=== PATIENT | male | born 1980 | race Caucasian/White ===

== ENCOUNTER 2022-06-25 19:03 | Emergency (ER) | payer SELFPAY ==
[2022-06-25 19:40] VITALS: BP 201/115; PULSE 83; RESP 18; TEMP 36.6; O2SAT 98; BMI 33.3
--- NOTE | 2022-06-25 20:10 | ECG_ITS ---
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 Measurements Intervals [place] Rate: 64 P: 24 [place]: 140 QRS: 2 QRSD: 95 T: 44 QT: 381 QTc: 393 Interpretive Statements SINUS RHYTHM WITH SINUS ARRHYTHMIA No previous ECG available for comparison Electronically Signed On 06-25-2022 22:00:17 CDT by Gorge Avila M.D. [email or web address]
--- NOTE | 2022-06-25 20:10 | XRR_ITS ---
PROCEDURE INFORMATION: Exam: XR Chest Exam date and time: 06/25/2022 8:25 PM Age: 41 years old Clinical indication: Chest wall pain; Additional info: Cp TECHNIQUE: Imaging protocol: Radiologic exam of the chest. Views: 1 view. COMPARISON: No relevant prior studies available. FINDINGS: Lungs: Unremarkable. No consolidation. Pleural spaces: Unremarkable. No pleural effusion. No pneumothorax. Heart/Mediastinum: Cardiomegaly. Bones/joints: Unremarkable. XR/XR chest 1V portable [id number] IMPRESSION: Cardiomegaly, lungs are clear.
--- NOTE | 2022-06-25 20:18 | ED_ITS ---
HPI - General Adult General: Chief complaint: General Medical Stated complaint: high bp Time Seen by Provider: 06/25/22 20:04 Source: patient Mode of arrival: ambulatory Limitations: no limitations History of Present Illness: 41-year-old male states he was recently diagnosed with hypertension he states he started Norvasc last week. He states he been taking it been causing a lot of GI distress he states he has been burping having a burning sensation in his chest. He states it stopped yesterday and today has been hypertensive his blood pressure is 201/115 he states he still has some of that burning in his chest he denies any shortness of breath or diaphoresis denies any worsening proved factors. Associated symptoms: Reports chest pain; Deny dyspnea, headache(s), nausea, rash or vomiting Review of Systems Const: Denies: fever(s), chills, body aches or change in appetite Eyes: Denies: blurry vision or eye discomfort ENMT: Denies: throat pain or dental pain Card: Reports: chest pain Resp: Denies: dyspnea GI: Denies: abdominal pain, nausea, vomiting or diarrhea : Denies: dysuria Musc: Denies: neck pain or back pain Skin/Breast: Denies: rash Neuro: Denies: headache(s) Psych: Denies: depression Mason/Lymph: Denies: easy bruising All/Imm: Denies: urticaria PFSH ED PFSH: Medical History (Updated 06/25/22 @ 21:04 by Jovi Arriaga MD) Hypertension Social History Substance/Drug Use: never Physical Exam Const: COMMON NORMALS: no acute distress, patient oriented x3 and healthy appearing HENMT: COMMON NORMALS: normocephalic and atraumatic HEAD & SCALP: normocephalic and atraumatic Eye: COMMON NORMALS: Equal, round and reactive pupils present and EOMs intact bilaterally PUPIL: Yes Equal, round and reactive pupils present Neck/C-Spine: COMMON NORMALS: full ROM and supple Chest: COMMONS NORMALS: normal inspection of the chest and normal palpation of entire chest wall Resp: COMMON NORMALS: normal respiratory effort, No retractions, No use of accessory muscles and clear to auscultation bilaterally AUSCULTATION: clear to auscultation bilaterally Cardio: COMMON NORMALS: regular rate, regular rhythm and No murmurs present (Cardio) RATE: regular rate RHYTHM: regular rhythm GI: COMMON NORMALS: Normal to inspection, nondistended, normoactive bowel sounds present, Soft to palpation, non-tender and no masses PALPATION: Yes Soft to palpation Extremity: COMMON NORMALS: normal to inspection and full ROM Neuro: COMMON NORMALS: patient oriented x3, moves all extremities and no focal motor deficits Psych: COMMON NORMALS: mental status grossly normal, Normal thought process present and cooperative THOUGHT PROCESS: Normal thought process present Skin: COMMON NORMALS: no rashes or lesions noted and no wounds GENERAL SKIN EXAM: no rashes or lesions noted Course Vital Signs: Vital signs: Vital Signs Temperature 97.8 F 06/25/22 19:40 Pulse Rate 74 06/25/22 20:44 Respiratory Rate 14 06/25/22 20:44 Blood Pressure 170/101 06/25/22 20:44 Pulse Oximetry 97 06/25/22 20:44 Oxygen Delivery Me thod 06/25/22 19:40 [facility] - General Adult Medical Decision Making Patient presents here with hypertension his blood pressure here is improved he does have some chest pains atypical in nature some likely gastritis he stopped his Norvasc will start him on metoprolol he is to follow with PCP and return if worsening Lab Data : 06/25/22 20:18 06/25/22 20:18 Radiology Impressions Chest X-Ray 06/25/22 20:10 IMPRESSION: Cardiomegaly, lungs are clear. Laboratory Results WBC 12.1 10^3/uL (4.0-10.0) H 06/25/22 20:18 RBC 5.22 10^6/uL (4.1-5.3) 06/25/22 20:18 Hgb 16.0 g/dL (11.7-16.6) 06/25/22 20:18 Hct 45.4 % (42.0-52.0) 06/25/22 20:18 MCV 87.0 fl (80-94) 06/25/22 20:18 MCH 30.7 pg (28.0-34.0) 06/25/22 20:18 MCHC 35.2 g/dL (30.0-36.0) 06/25/22 20:18 RDW 12.1 % (12.1-15.1) 06/25/22 20:18 Plt Count 289 10^3/cmm (130-400) 06/25/22 20:18 MPV 10.6 fL (7.4-10.4) H 06/25/22 20:18 Neut % (Auto) 79.3 % 06/25/22 20:18 Lymph % (Auto) 14.0 % 06/25/22 20:18 [place] % (Auto) 5.5 % 06/25/22 20:18 Eos % (Auto) 0.7 % 06/25/22 20:18 Baso % (Auto) 0.3 % 06/25/22 20:18 Neut # (Auto) 9.60 10^3/uL (1.8-7.7) H 06/25/22 20:18 Lymph # (Auto) 1.7 10^3/uL (0.8-4.8) 06/25/22 20:18 [place] # (Auto) 0.7 10^3/uL (0.2-0.9) 06/25/22 20:18 Eos # (Auto) 0.1 10^3/uL (0.0-0.8) 06/25/22 20:18 Baso # (Auto) 0.0 10^3/uL (0.0-0.1) 06/25/22 20:18 Nucleated RBC % (auto) 0 % 06/25/22 20:18 Nucleated RBCs # 0.0 /100WBC 06/25/22 20:18 Sodium 137 mmol/L (136-145) 06/25/22 20:18 Potassium 3.7 mmol/L (3.5-5.1) 06/25/22 20:18 Chloride 100 mmol/L (98-107) 06/25/22 20:18 Carbon Dioxide 26 mmol/L (22-29) 06/25/22 20:18 Anion Gap 14.7 (5-19) 06/25/22 20:18 BUN 9 mg/dL (6-20) 06/25/22 20:18 Creatinine 1.0 mg/dL (0.7-1.2) 06/25/22 20:18 GFR Calculation 82.8 mL/min (90-130) L 06/25/22 20:18 Glucose 99 mg/dL (65-115) 06/25/22 20:18 Calculated Osmolality 283 mOsm/kg (285-295) L 06/25/22 20:18 Calcium 9.4 mg/dL (8.5-10.5) 06/25/22 20:18 Total Bilirubin 0.6 mg/dL (0.15-1.2) 06/25/22 20:18 AST 17 U/L (0-40) 06/25/22 20:18 ALT 37 U/L (0-41) 06/25/22 20:18 Alkaline Phosphatase 59 U/L (40-130) 06/25/22 20:18 Troponin T Baseline 8 ng/L (0-15) 06/25/22 20:18 Total Protein 7.9 g/dL (6.6-8.7) 06/25/22 20:18 Albumin 4.7 g/dL (3.5-5.2) 06/25/22 20:18 Globulin 3.2 g/dL (1.3-4.6) 06/25/22 20:18 EKG Data EKG 1: I personally reviewed and interpreted this EKG as follows: EKG interpretation date: 06/25/22 EKG interpretation time: 19:47 Interpretation: nsr hr [address] or t wave abnormalities qrs 95 qtc 390 Computer generated interpretation: Chest X-Ray 06/25/22 20:10 IMPRESSION: Cardiomegaly, lungs are clear. 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
[2022-06-25] MEDS: hyDRALAzine 20 mg/mL INJ 1 mL 10 MG IVP (20:21)
[2022-06-25 20:23] LABS: Basophils % 0.3 %; Eosinophils # 0.1 10^3/uL (0.0-0.8); Eosinophils % 0.7 %; Hematocrit 45.4 % (42.0-52.0); Lymphocytes # 1.7 10^3/uL (0.8-4.8); Mean Corpuscular HGB Conc 35.2 g/dL (30.0-36.0); Mean Corpuscular Hemoglobin 30.7 pg (28.0-34.0); Mean Platelet Volume 10.6 fL (7.4-10.4); Monocytes # 0.7 10^3/uL (0.2-0.9); Monocytes % 5.5 %; Neutrophils % 79.3 %; Nucleated Red Blood Cells % 0 %; Platelet Count 289 10^3/cmm (130-400); Red Blood Count 5.22 10^6/uL (4.1-5.3); Red Cell Distribution Width 12.1 % (12.1-15.1); White Blood Count 12.1 10^3/uL (4.0-10.0)
[2022-06-25 20:44] VITALS: BP 170/101; PULSE 74; RESP 14; O2SAT 97
[2022-06-25 20:45] LABS: Troponin(5th) Baseline 8 ng/L (0-15)
[2022-06-25 20:46] LABS: Alanine Aminotransferase 37 U/L (0-41); Albumin Level 4.7 g/dL (3.5-5.2); Alkaline Phosphatase 59 U/L (40-130); Anion Gap 14.7 (5-19); Aspartate Amino Transferase 17 U/L (0-40); Blood Urea Nitrogen 9 mg/dL (6-20); Calcium 9.4 mg/dL (8.5-10.5); Carbon Dioxide 26 mmol/L (22-29); Chloride 100 mmol/L (98-107); Globulin 3.2 g/dL (1.3-4.6); Glomerular Filtration Rate 82.8 mL/min (90-130); Glucose 99 mg/dL (65-115); Osmolality Calculated 283 mOsm/kg (285-295); Potassium 3.7 mmol/L (3.5-5.1); Sodium 137 mmol/L (136-145); Total Bilirubin 0.6 mg/dL (0.15-1.2); Total Protein 7.9 g/dL (6.6-8.7)
[2022-06-25 21:00] VITALS: BP 157/107; PULSE 69; RESP 15; O2SAT 98
[2022-06-25] MEDS: metoprolol tartrate 25 mg Tablet PO (21:10)
[2022-06-25 21:30] VITALS: BP 166/106; PULSE 66; RESP 13; O2SAT 96
[2022-06-25 21:49] VITALS: BP 166/106; PULSE 60
== END 2022-06-25 21:45 | disposition home or self-care (01) ==
PROVIDERS: Emergency Provider Emergency Medicine; PCP Family Medicine
DX: I10 Essential (primary) hypertension (principal); R07.9 Chest pain, unspecified
CPT/HCPCS: 71045; 80053; 84484; 85025; 93005; 96374; 99285; J0360